=== PATIENT | female | born 1955 ===

== ENCOUNTER 2025-08-06 06:15 | Day surgery (SDC) | payer BC, SELFPAY ==
[2025-07-28 09:05] LABS: Hematocrit 39.3 % (37.0-47.0); Hemoglobin 13.4 g/dL (12.0-16.0); Mean Corp Hgb Conc. 34.1 g/dL (33.0-37.0); Mean Corpuscular Volume 92.7 fL (81.0-99.0); Nucleated Red Blood Cells % 0 %; Platelet Count 161 10^3/uL (130-400); Red Cell Dist. Width 12.6 % (11.5-14.5)
[2025-07-28 10:21] LABS: Blood Urea Nitrogen 22 mg/dl (7-17); Calcium 9.8 mg/dl (8.4-10.2); Carbon Dioxide 27 mmol/L (22-30); Chloride 106 mmol/L (98-107); Glucose 90 mg/dl (70-99); Potassium 4.5 mmol/L (3.5-5.1); Sodium 142 mmol/L (135-145); eGFR 53.72
[2025-07-28 14:00] VITALS: BMI 34.5
[2025-08-06] VITALS (8 sets, daily range): BP systolic 113–161; BP diastolic 50–73; BMI 34.5
[2025-08-06] MEDS: TYLENOL 1000 MG PO (08:59)
--- NOTE | 2025-08-06 12:28 | W.IMMPOSTOP ---
Surgical Immed Post Op Note
-
Primary Surgeon: Akira Alejandro MD
Assisting Surgeon:
Pre-op Diagnosis: left knee medial meniscus tear
Post-op Diagnosis: left knee medial meniscus tear
Procedure Performed: arthroscopic left knee partial medial meniscectomy
Anesthesia Type: general
Specimen / Cultures: none
Estimated Blood Loss: 1mL
Complications: none apparent
Tourniquet time: 25 minutes @ 250mm Hg
Operative Findings: grade 4 chondrosis of lateral patella, medial meniscus tear
Operative dictation #: [id number]
== END 2025-08-06 15:44 | disposition home or self-care (01) ==
LOC: SDS 06:15
PROVIDERS: ATTENDING PHYSICIAN Student in an Organized Health Care Education/Training Program; FAMILY PHYSICIAN Family Medicine
DX: S83.242A Other tear of medial meniscus, current injury, left knee, initial encounter (principal); X58.XXXA Exposure to other specified factors, initial encounter; M22.42 Chondromalacia patellae, left knee
CPT/HCPCS: 29881; 36415; 80048; 85025; 93005